=== PATIENT | male | born 1970 | race Caucasian/White ===

== ENCOUNTER 2020-08-28 04:05 | Emergency (ER) | payer SELFPAY ==
[~2020-08-28] VITALS: Ht 170.2 cm; Wt 65.0 kg
--- NOTE | 2020-08-28 04:20 | PHYS DOC ---
General Adult EDM: Chief Complaint: SEIZURE HPI: HPI: Patient is a 49 year old male presents via ems after seizure. Prior to arrival patient was working at [employer] when he had 2 witnessed grand mal seizures. Each seizure lasted approximately 30 seconds in length. Upon EMS arrival patient had another seizure he was treated with Valium 10 mg IM. On arrival patient very drowsy. Review of Systems: Review of Systems: Constitutional: Denies fever or chills. [] Eyes: Denies change in visual acuity. [] HENT: Denies nasal congestion or sore throat. [] Respiratory: Denies cough or shortness of breath. [] Cardiovascular: Denies chest pain or edema. [] GI: Denies abdominal pain, nausea, vomiting, bloody stools or diarrhea. [] : Denies dysuria. [] Musculoskeletal: Denies back pain or joint pain. [] Integument: Denies rash. [] Neurologic: Denies headache, focal weakness or sensory changes. [positive seizures] Endocrine: Denies polyuria or polydipsia. [] Lymphatic: Denies swollen glands. [] Psychiatric: Denies depression or anxiety. [] Heart Score: Risk Factors: Risk Factors: DM, Current or recent (<one month) smoker, HTN, HLP, family history of CAD, obesity. Risk Scores: Score 0 - 3: 2.5% MACE over next 6 weeks - Discharge Home Score 4 - 6: 20.3% MACE over next 6 weeks - Admit for Clinical Observation Score 7 - 10: 72.7% MACE over next 6 weeks - Early Invasive Strategies Physical Exam: PE: Constitutional: Well developed, well nourished, no acute distress, non-toxic appearance. [] HENT: Normocephalic, atraumatic, bilateral external ears normal, oropharynx moist, no oral exudates, nose normal. [] Eyes: PERRLA, EOMI, conjunctiva normal, no discharge. [] Neck: Normal range of motion, no tenderness, supple, no stridor. [] Cardiovascular:Heart rate regular rhythm, no murmur [] Lungs & Thorax: Bilateral breath sounds clear to auscultation [] Abdomen: Bowel sounds normal, soft, no tenderness, no masses, no pulsatile masses. [] Skin: Warm, dry, no erythema, no rash. [] Back: No tenderness, no CVA tenderness. [] Extremities: No tenderness, no cyanosis, no clubbing, ROM intact, no edema. [] Neurologic: Alert and oriented X 3, normal motor function, normal sensory function, no focal deficits noted. [] Psychologic: Affect normal, judgement normal, mood normal. [] EKG: EKG: [] EKG performed at 041 5 hours heart rate [address] elevation no ST depression no acute SC Radiology/Procedures: Radiology/Procedures: [] Impression: IMPRESSION: No evidence of acute intracranial abnormality. Course & Med Decision Making: Course & Med Decision Making Pertinent Labs and Imaging studies reviewed. (See chart for details) [] Patient was evaluated for chief complaint. Work-up consisted of laboratory analysis and radiologic imaging. Results reviewed and discussed with patient. Patient noted to have a potassium of 2.5. Patient was treated with p.o. and IV potassium. CT head was negative for acute abnormalities. Dragon Disclaimer: Dragon Disclaimer: This electronic medical record was generated, in whole or in part, using a voice recognition dictation system. Departure Departure Impression: Primary Impression: Seizure Additional Impression: Hypokalemia Disposition: 01 DC HOME SELF CARE/HOMELESS Condition: STABLE Patient Instructions: Hypokalemia, Seizure, Adult Scripts Potassium Chloride (POTASSIUM CHLORIDE ) 20 Meq Tablet.er 20 MEQ PO DAILY for SUPPLEMENT for 14 Days, #14 TAB.SR Prov: REGLA ROSS DO 08/28/20 REGLA ROSS DO Aug 28, 2020 04:20
[2020-08-28 04:25] LABS: BASO % 1 % (0-3); EOS # 0.1 x10^3/uL (0.0-0.7); EOS % 2 % (0-3); HEMOGLOBIN 14.3 g/dL (13.0-17.5); LYMPH # 1.9 x10^3/uL (1.0-4.8); LYMPH % 39 % (24-48); MEAN CORPUSCULAR HEMOGLOBIN 31 pg (25-35); MEAN CORPUSCULAR HGB CONC 35 g/dL (31-37); MEAN CORPUSCULAR VOLUME 88 fL (79-100); MONO # 0.6 x10^3/uL (0.0-1.1); MONO % 13 % (0-9); NEUT # 2.1 x10^3/uL (1.8-7.7); NEUT % 45 % (31-73); PLATELET COUNT 228 x10^3/uL (140-400); RED BLOOD COUNT 4.68 x10^6/uL (4.30-5.70); RED CELL DISTRIBUTION WIDTH 13.2 % (11.5-14.5); WHITE BLOOD COUNT 4.7 x10^3/uL (4.0-11.0)
[2020-08-28 04:48] LABS: ACETAMIN < 2 mcg/ml (10-30); ALBUMIN 3.3 g/dL (3.4-5.0); ALBUMIN/GLOBULIN RATIO 1.3 (1.0-1.7); CALCIUM 7.4 mg/dL (8.5-10.1); CREATININE 0.8 mg/dL (0.7-1.3); GFR 103.6; SALIC < 2.8 mg/dL (2.8-20.0); TOTAL BILIRUBIN 0.5 mg/dL (0.2-1.0); TOTAL PROTEIN 5.9 g/dL (6.4-8.2)
--- NOTE | 2020-08-28 04:48 | RAD ---
EXAMINATION: CT HEAD WO CONTRAST (CT HEAD WITHOUT IV CONTRAST) CLINICAL HISTORY: Seizure TECHNIQUE: Serial axial images without IV contrast were obtained from the vertex to the foramen magnum. CT Dose Reduction Employed: One or more of the following individualized dose reduction techniques were utilized for this examination: 1. Automated exposure control 2. Adjustment of the mA and/or kV according to patient size 3. Use of iterative reconstruction technique. COMPARISON: None FINDINGS: Post-operative change: None. Acute change: No evidence of an acute infarct or other acute parenchymal process. Hemorrhage: No evidence of acute intracranial hemorrhage. Mass Lesion / Mass Effect: There is no evidence of an intracranial mass or extraaxial fluid collection. No significant mass effect. Chronic change: None apparent. Parenchyma: There is no significant volume loss. The brain parenchyma is otherwise within normal limits for age. Ventricles: The ventricles are within normal limits of size and configuration for age. Paranasal sinuses and skull base: The visualized paranasal sinuses are grossly clear. The skull base and imaged soft tissues are unremarkable. IMPRESSION: No evidence of acute intracranial abnormality. Electronically signed by: Blair Redman DO (08/28/2020 4:45 AM) LIO
[2020-08-28 04:49] LABS: ETHANOL < 10 mg/dL (0-10)
[2020-08-28 04:51] LABS: POTASSIUM 2.5 mmol/L (3.5-5.1)
[2020-08-28] MEDS: POTASSIUM CHLORIDE 20 MEQ TABLET.ER. PO ONE ×2 (05:05→05:14)
[2020-08-28 05:10] LABS: BILIRUBIN,URINE SMALL (NEG); CLARITY,URINE CLEAR; COLOR,URINE AMBER; NITRITE,URINE NEGATIVE (NEG); PH,URINE 5.5 (<5.0-8.0); PROTEIN,URINE 30 mg/dL (NEG-TRACE)
[2020-08-28 05:17] LABS: BARBITURATES NEG (NEG); BENZODIAZEPINES POS (NEG); CANNABINOIDS POS (NEG); COCAINE NEG (NEG); METHADONE NEG (NEG); OPIATES NEG (NEG); PHENCYCLIDINE NEG (NEG)
[2020-08-28 05:20] LABS: AMPHETAMINE/METHAMPHETAMINE POS (NEG)
[2020-08-28 05:21] LABS: BACTERIA,URINE FEW /HPF (0-FEW)
[2020-08-28 05:22] LABS: GRANULAR CASTS,URINE OCCASIONAL /HPF; HYALINE CASTS, URINE FEW /HPF
[2020-08-28] MEDS ORDERED: POTASSIUM CHLORIDE 10MEQ 100 ML IV SCH (05:30)
[2020-08-28] MEDS ORDERED: IV NORMAL SALINE 1000ML BAG 1,000 ML IV ONE (05:30)
[2020-08-28] MEDS ORDERED: POTA20TA4 PO (05:41)
[2020-08-28 06:37] VITALS: BP 119/75
== END 2020-08-28 06:55 | disposition home or self-care (01) ==
LOC: ER 04:05
DX: R56.9 Unspecified convulsions (principal); E87.6 Hypokalemia; R51.9 Headache, unspecified
CPT/HCPCS: 36415; 70450; 80053; 80307; 80329; 81001; 83735; 85025; 96365; 99285; G0480; J3480; J7030